=== PATIENT | male | born 1950 | race Caucasian/White ===

== ENCOUNTER 2016-05-12 19:01 | Emergency (ER) | payer MEDICARE ==
[2016-05-12 19:23] VITALS: BMI 21.6
[2016-05-12] MEDS ORDERED: NS 500 ML IV ONE (19:24)
[2016-05-12 19:29] LABS: MPV 8.3 fL (7.4-10.4)
[2016-05-12 19:38] LABS: PARTIAL THROMB. TIME 28.4 SEC (22-35); PT-INR 1.2
[2016-05-12 19:44] LABS: ABG Draw Site Left Radial; ALLEN'S TEST PASS; BEb 7.2 (+/- 2); CARBOXY HGB 2.3; TCO2 32.5 MMOL/L (23-27)
[2016-05-12 19:44] LABS: BLOOD UREA NITROGEN 14 MG/DL (9-20); CALC CORRECTED 9.4 MG/DL (8.4-10.2); CALCIUM 8.7 MG/DL (8.4-10.2); CALCULATED OSMOLALITY 262 MOs/Kg (270-290); CHLORIDE 92 mEq/L (98-107); CPK TOTAL WITH POSSIBLE MB 24 IU/L (55-170); GLUCOSE 120 mg/dL (70-99); SODIUM LEVEL 135 mEq/L (137-146); TOTAL PROTEIN 6.9 G/DL (6.3-8.2)
--- NOTE | 2016-05-12 19:44 | DIRPT ---
CLINICAL DATA: 65-year-old male with sepsis EXAM: PORTABLE CHEST 1 VIEW COMPARISON: Radiograph 04/16/2016 FINDINGS: Single portable view of the chest demonstrates clear lungs. Minimal bibasilar platelike atelectatic changes. No pleural effusion or pneumothorax. Stable cardiac silhouette. Right shoulder arthroplasty and thoracolumbar Rudolph rods. IMPRESSION: No active disease. Electronically Signed By: Tolu Martinez M.D. On: 05/12/2016 19:41
[2016-05-12 19:46] LABS: HEMOGLOBIN 9.7 G/DL (14.0-18.0)
[2016-05-12 20:08] LABS: SEG NEUTROPHIL 68 % (45-76)
[2016-05-12 20:09] LABS: TOTAL CELL COUNT 100
[2016-05-12 21:38] LABS: LEUKOCYTES/URINE NEG (NEGATIVE); NITRITE/URINE NEG (NEGATIVE); RBC/URINE 0-2 (0-2); URINE OCCULT BLOOD NEG (NEG/TRACE)
--- NOTE | 2016-05-12 22:40 | EDPRACDOC ---
- General Information Chief Complaint: Altered Mental Status Stated Complaint: BACK & ABD. PAIN Time Seen by Provider: 05/12/16 19:11 Information Source: Patient Home Medications: Home Medications Alprazolam [Xanax] 0.5 mg PO Q8H PRN 09/19/14 Celecoxib (anti-inflammatory) [Celebrex] 200 mg PO BID 09/19/14 Cyclobenzaprine HCl [Flexeril] 5 mg PO TID PRN 09/19/14 Dexlansoprazole [Dexilant] 60 mg PO DAILY 09/19/14 Finasteride [Proscar] 5 mg PO DAILY 09/19/14 Hydrochlorothiazide 12.5 mg PO DAILY 09/19/14 Pregabalin [Lyrica] 300 mg PO TID 09/19/14 Ranitidine HCl 300 mg PO HS 09/19/14 Rosuvastatin [Crestor] 10 mg PO HS 09/19/14 Aspirin [Aspirin EC] 81 mg PO DAILY 12/06/14 Bupropion HCl [Bupropion HCl Sr] 200 mg PO BID 12/06/14 Clopidogrel Bisulfate [Plavix] 75 mg PO DAILY 12/06/14 Metoprolol Tartrate [Lopressor] 12.5 mg PO BID 12/06/14 Oxycodone Immediate Release [Oxycodone Immediate Release (OxyIR)] 1 - 2 tabs PO Q4H PRN 12/07/14 Probiotic Blend [Mariam Q] 1 tab PO BIDLS #20 tablet 04/19/16 Allergies/Adverse Reactions: Allergies Allergy/AdvReac Type Severity Reaction Status Date / Time Iodinated Contrast Media - Allergy Rash-Genera Verified 04/17/16 13:36 IV Dye lized - History of Present Illness Onset: 4 days Exact Onset of Symptoms: Unknown HPI: GEN WEAKNESS, POOR PO INTAKE, INCREASING BACK PAIN (SPINE SURGERY DR LUGO FEB 2016). APPT WITH HIM IN 2 DAYS. FEVER INTERMITTENTLY FOR PAST 2 WEEKS, LAST SEVERAL DAYS AGO. 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 NO SIGNIF SHOB OR OTHER PAIN - Treatment Prior to ED Arrival Reported Medications/Treatment ANSWERING SERVICE AGENT EMS Treatment ALS IV Yes ED Past Medical History - History Reviewed Yes Nurses notes reviewed and agree except as marked - Patient Medical History Neurological History: Reports: Migraine Cardiac History: Reports: Coronary Artery Disease, Hypertension, Heart Attack (, 10/2009), Cardiac Catheterization (09/200910/09/2009), Hypercholesterolemia Respiratory History: Reports: Asthma, COPD GI/ History: Reports: Gastroesophageal Reflux (hiatal hernia, Sellers's esophagus), Diverticulosis Musculoskeletal History: Reports: Arthritis (and chronic back pain. 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 Denies: Depression, Substance Use Disorder Systemic History: Denies: Cancer Surgical History: Reports: Cholecystectomy (Dr. Jon 12/2014.), Cardiac Catheterization (09/200910/09/2009), Other (Back surgery 02/2016 Dr. Castillo ) Date of Last Radiation Treatment: Never Date of Last Chemotherapy Date: NEVER - Family Medical History Reports: Hypertension (BROTHERS, FATHER), Stroke (BROTHER), Cardiac Disorders ( BROTHERS, FATHER), Renal Disease (Mother: Bright's disease). Denies: Diabetes, Cancer - Social Medical History Smoking Status: Heavy tobacco smoker (5 or more cigarettes/day or daily pipe/ cigar) Social History: Denies: Substance Use Disorder EDM Review of Systems - Review of Systems ROS Negative Except as Marked: Yes All systems reviewed and were negative except as marked - Physical Exam Constitutional: Cachectic, Confused, Somnolent, Other. negative: Well nourished , Well appearing Oriented to: Not Oriented Last recorded Vital Signs: Last Vital Signs Temp 98.4 F 05/12/16 19:16 Pulse 82 05/12/16 21:09 Resp 20 05/12/16 21:09 BP 111/67 05/12/16 21:09 Pulse Ox 97 05/12/16 21:09 Oxygen Pulse Oxygen Saturation 97 O2 Device Nasal Cannula Oxygen Flow Rate 2 Fraction of Inspired Oxygen ( FIO2) - HEENT Head: Normal Eye Exam: Pale Conjunctiva Oropharynx: Membranes Dry Neck: Normal - Respiratory/Cardiovascular Respiratory: Normal - CTA Cardiovascular: Normal. negative: Tachycardia - GI Auscultation: Normal Palpation: Normal Tenderness: Non tender - Musculoskeletal Back: Normal, Other (LONG THORACIC TO LUMBAR SCAR WELL HEALED, NO FLUID COLLECTIONS. NO DRAINAGE.) Extremities: Normal. negative: Clubbing, Cyanosis, Pedal Edema - Integumentary Skin: Normal, Warm, Dry - Neurologic Memory Impaired: Normal Mood Description: Flat Thought: negative: Coherent - Re-evaluation Re-evaluation 3 Re-evaluation Time: :33 (AWAKE, COHERENT NO PAIN. AMBULATED 30 FEET IN HALLWAYS.) General: Pleasant MALE No acute distress. Neuro: Alert Oriented, calm and cooperative HEENT: Normocephalic atraumatic. Sclerae nonicteric. Extraocular movements intact. Oral mucosa pink and moist. Neck: Supple. Nontender. Good range of motion. No masses. Trachea is midline. No cervical adenopathy. Lungs: Clear to auscultation. No rhonchi or wheezing. Heart: Regular rate and rhythm. No murmur. Abdomen: Soft, nontender, nondistended. No hepatosplenomegaly. No abdominal wall defects or masses. No guarding or rebound. Extremities: no cyanosis clubbing or edema. No palpable deformities. Skin: Warm and dry, no rashes - Results 05/12/16 19:08 05/12/16 19:08 WBC 10.9 xk/uL (3.8-10.8) H 05/12/16 19:08 RBC 4.73 xM/uL (4.70-6.10) 05/12/16 19:08 Hgb 11.4 g/dL (14.0-18.0) L 05/12/16 19:08 Hct 35.3 % (42-52) L 05/12/16 19:08 MCV 75 fL (80-94) L 05/12/16 19:08 MCH 24.1 pg (27-32) L 05/12/16 19:08 MCHC 32.4 g/dl (33-36) L 05/12/16 19:08 RDW 19.8 % (11.5-14.5) H 05/12/16 19:08 Plt Count 344 xk/uL (130-400) 05/12/16 19:08 MPV 8.3 fL (7.4-10.4) 05/12/16 19:08 Neut % (Auto) Cancelled 05/12/16 19:08 Lymph % (Auto) Cancelled 05/12/16 19:08 Hendricks % (Auto) Cancelled 05/12/16 19:08 Eos % (Auto) Cancelled 05/12/16 19:08 Baso % (Auto) Cancelled 05/12/16 19:08 Absolute Neuts (auto) Cancelled 05/12/16 19:08 Absolute Lymphs (auto) Cancelled 05/12/16 19:08 Seg Neuts % (Manual) 68 % (45-76) 05/12/16 19:08 Band Neutrophils % 0 % (0-5) 05/12/16 19:08 Lymphocytes % (Manual) 22 % (17-44) 05/12/16 19:08 Monocytes % (Manual) 10 % (0-10) 05/12/16 19:08 Absolute Neutrophils 7.41 xk/uL (1.7-8.2) 05/12/16 19:08 Absolute Lymphocytes 2.40 xk/uL (0.65-4.75) 05/12/16 19:08 Vacuolated Neuts Few 05/12/16 19:08 Platelet Estimate Norm (NORMAL) 05/12/16 19:08 RBC Morphology 1+ aniso 1+ macro 1+ poik 05/12/16 19:08 RBC Morphology 1+ aniso 1+ macro 1+ poik 05/12/16 19:08 RBC Morphology 1+ aniso 1+ macro 1+ poik 05/12/16 19:08 PT 12.0 SEC (9.2-11.2) H 05/12/16 19:08 INR 1.2 05/12/16 19:08 APTT 28.4 SEC (22-35) 05/12/16 19:08 Puncture Site Left radial 05/12/16 19:40 pCO2 41.0 mmHg (35-45) 05/12/16 19:40 pO2 54.0 mmHg (80-100) L 05/12/16 19:40 HCO3 31.2 MMOL/L (22-26) H 05/12/16 19:40 Total CO2 32.5 MMOL/L (23-27) H 05/12/16 19:40 Base Excess 7.2 (+/- 2) H 05/12/16 19:40 Collected by Jose Antonioytr 05/12/16 19:40 ABG pH 7.490 pH UNITS (7.35-7.45) H 05/12/16 19:40 ABG Hemoglobin 9.7 G/DL (14.0-18.0) L 05/12/16 19:40 ABG Oxyhemoglobin 88.0 % (95-98) L* 05/12/16 19:40 ABG Carboxyhemoglobin 2.3 05/12/16 19:40 ABG Methemoglobin 1.3 % (<3.0) 05/12/16 19:40 Total O2 Concentration 12.0 VOL % (17.6-24.3) L 05/12/16 19:40 FiO2 % 21 05/12/16 19:40 Sodium 135 mEq/L (137-146) L 05/12/16 19:08 Potassium 2.8 mEq/L (3.5-5.1) L 05/12/16 19:08 Chloride 92 mEq/L (98-107) L 05/12/16 19:08 Carbon Dioxide 31 mMOL/L (22-33) 05/12/16 19:08 Anion Gap 15 mEq/L (8-16) 05/12/16 19:08 BUN 14 MG/DL (9-20) 05/12/16 19:08 Creatinine 0.70 MG/DL (0.66-1.25) 05/12/16 19:08 Estimated GFR (MDRD) > 60 mL/min (>=60) 05/12/16 19:08 Glucose 120 mg/dL (70-99) H 05/12/16 19:08 Calculated Osmolality 262 MOs/Kg (270-290) L 05/12/16 19:08 Lactic Acid 1.6 mEq/L (0.7-2.1) 05/12/16 19:08 Calcium 8.7 MG/DL (8.4-10.2) 05/12/16 19:08 Corrected Calcium 9.4 MG/DL (8.4-10.2) 05/12/16 19:08 Total Bilirubin 0.7 MG/DL (0.2-1.3) 05/12/16 19:08 AST 25 IU/L (17-59) 05/12/16 19:08 ALT 19 IU/L (21-72) L 05/12/16 19:08 Alkaline Phosphatase 121 IU/L (50-160) 05/12/16 19:08 Creatine Kinase 24 IU/L (55-170) L 05/12/16 19:08 Troponin I < 0.01 ng/mL (<.04) 05/12/16 19:08 Total Protein 6.9 G/DL (6.3-8.2) 05/12/16 19:08 Albumin 3.3 G/DL (3.5-5.0) L 05/12/16 19:08 Lipase 72 U/L (23-300) 05/12/16 19:08 Urine Color Dark yellow 05/12/16 21:11 Urine Clarity Clear 05/12/16 21:11 Urine pH 6.0 (5.0-8.0) 05/12/16 21:11 Ur Specific [place] 1.025 (1.003-1.035) 05/12/16 21:11 Urine Protein 2+ (NEG/TRACE) H 05/12/16 21:11 Urine Glucose (UA) Neg (NEGATIVE) 05/12/16 21:11 Urine Ketones 1+ (NEGATIVE) H 05/12/16 21:11 Urine Occult Blood Neg (NEG/TRACE) 05/12/16 21:11 Urine Nitrite Neg (NEGATIVE) 05/12/16 21:11 Urine Bilirubin Neg (NEGATIVE) 05/12/16 21:11 Urine Urobilinogen <2.0 MG/DL (0-1) 05/12/16 21:11 Ur Leukocyte Esterase Neg (NEGATIVE) 05/12/16 21:11 Urine RBC 0-2 (0-2) 05/12/16 21:11 Urine WBC 10-20 (0-2) H 05/12/16 21:11 Ur Epithelial Cells 1+ 05/12/16 21:11 Urine Bacteria Few (NEG/FEW) 05/12/16 21:11 Urine Mucus Sm amt (NEG/OCC) 05/12/16 21:11 Blood Type O POSITIVE 05/12/16 19:08 Antibody Screen Negative 05/12/16 19:08 Lab Results 05/12/16 05/12/16 05/12/16 21:11 19:40 19:08 WBC RBC Hgb Hct MCV MCH MCHC RDW Plt Count MPV Neut % (Auto) Lymph % (Auto) Hendricks % (Auto) Eos % (Auto) Baso % (Auto) Absolute Neuts (auto) Absolute Lymphs (auto) Seg Neuts % (Manual) Band Neutrophils % Lymphocytes % (Manual) Monocytes % (Manual) Absolute Neutrophils Absolute Lymphocytes Vacuolated Neuts Platelet Estimate RBC Morphology PT 12.0 H INR 1.2 APTT 28.4 Puncture Site Left radial pCO2 41.0 pO2 54.0 L HCO3 31.2 H Total CO2 32.5 H Base Excess 7.2 H Collected by Kaytr ABG pH 7.490 H ABG Hemoglobin 9.7 L ABG Oxyhemoglobin 88.0 L* ABG Carboxyhemoglobin 2.3 ABG Methemoglobin 1.3 Total O2 Concentration 12.0 L FiO2 % 21 Sodium Potassium Chloride Carbon Dioxide Anion Gap BUN Creatinine Estimated GFR (MDRD) Glucose Calculated Osmolality Lactic Acid Calcium Corrected Calcium Total Bilirubin AST ALT Alkaline Phosphatase Creatine Kinase Troponin I Total Protein Albumin Lipase Urine Color Dark yellow Urine Clarity Clear Urine pH 6.0 Ur Specific [place] 1.025 Urine Protein 2+ H Urine Glucose (UA) Neg Urine Ketones 1+ H Urine Occult Blood Neg Urine Nitrite Neg Urine Bilirubin Neg Urine Urobilinogen <2.0 Ur Leukocyte Esterase Neg Urine RBC 0-2 Urine WBC 10-20 H Ur Epithelial Cells 1+ Urine Bacteria Few Urine Mucus Sm amt Blood Type Antibody Screen 05/12/16 05/12/16 05/12/16 19:08 19:08 19:08 WBC 10.9 H RBC 4.73 Hgb 11.4 L Hct 35.3 L MCV 75 L MCH 24.1 L MCHC 32.4 L RDW 19.8 H Plt Count 344 MPV 8.3 Neut % (Auto) Cancelled Lymph % (Auto) Cancelled Hendricks % (Auto) Cancelled Eos % (Auto) Cancelled Baso % (Auto) Cancelled Absolute Neuts (auto) Cancelled Absolute Lymphs (auto) Cancelled Seg Neuts % (Manual) 68 Band Neutrophils % 0 Lymphocytes % (Manual) 22 Monocytes % (Manual) 10 Absolute Neutrophils 7.41 Absolute Lymphocytes 2.40 Vacuolated Neuts Few Platelet Estimate Norm RBC Morphology 1+ poik PT INR APTT Puncture Site pCO2 pO2 HCO3 Total CO2 Base Excess Collected by ABG pH ABG Hemoglobin ABG Oxyhemoglobin ABG Carboxyhemoglobin ABG Methemoglobin Total O2 Concentration FiO2 % Sodium 135 L Potassium 2.8 L Chloride 92 L Carbon Dioxide 31 Anion Gap 15 BUN 14 Creatinine 0.70 Estimated GFR (MDRD) > 60 Glucose 120 H Calculated Osmolality 262 L Lactic Acid 1.6 Calcium 8.7 Corrected Calcium 9.4 Total Bilirubin 0.7 AST 25 ALT 19 L Alkaline Phosphatase 121 Creatine Kinase 24 L Troponin I < 0.01 Total Protein 6.9 Albumin 3.3 L Lipase 72 Urine Color Urine Clarity Urine pH Ur Specific [place] Urine Protein Urine Glucose (UA) Urine Ketones Urine Occult Blood Urine Nitrite Urine Bilirubin Urine Urobilinogen Ur Leukocyte Esterase Urine RBC Urine WBC Ur Epithelial Cells Urine Bacteria Urine Mucus Blood Type Antibody Screen 05/12/16 19:08 WBC RBC Hgb Hct MCV MCH MCHC RDW Plt Count MPV Neut % (Auto) Lymph % (Auto) Hendricks % (Auto) Eos % (Auto) Baso % (Auto) Absolute Neuts (auto) Absolute Lymphs (auto) Seg Neuts % (Manual) Band Neutrophils % Lymphocytes % (Manual) Monocytes % (Manual) Absolute Neutrophils Absolute Lymphocytes Vacuolated Neuts Platelet Estimate RBC Morphology PT INR APTT Puncture Site pCO2 pO2 HCO3 Total CO2 Base Excess Collected by ABG pH ABG Hemoglobin ABG Oxyhemoglobin ABG Carboxyhemoglobin ABG Methemoglobin Total O2 Concentration FiO2 % Sodium Potassium Chloride Carbon Dioxide Anion Gap BUN Creatinine Estimated GFR (MDRD) Glucose Calculated Osmolality Lactic Acid Calcium Corrected Calcium Total Bilirubin AST ALT Alkaline Phosphatase Creatine Kinase Troponin I Total Protein Albumin Lipase Urine Color Urine Clarity Urine pH Ur Specific [place] Urine Protein Urine Glucose (UA) Urine Ketones Urine Occult Blood Urine Nitrite Urine Bilirubin Urine Urobilinogen Ur Leukocyte Esterase Urine RBC Urine WBC Ur Epithelial Cells Urine Bacteria Urine Mucus Blood Type O POSITIVE Antibody Screen Negative - EKG EKG #1 EKG Time: 19:09 Rate: bpm: 83 [place]: Normal Rhythm: NSR Block: None, RBBB Hypertrophy: None ST: Normal - Diagnostic Imaging Chest Image interpreted by: Radiologist Patient Name: DELORIS DELONG LOC: ED : 1950 AGE: 65 Order Date:05/12/16 Date of Service:09/20 Report # [id number] Ord Physician: Noemi Nicole MD Exam # [id number] Emergency Physician: Noemi Nicole MD Exam(s): [id number] RAD/DG CHEST PORTABLE CLINICAL DATA: 65-year-old male with sepsis EXAM: PORTABLE CHEST 1 VIEW COMPARISON: Radiograph 04/16/2016 FINDINGS: Single portable view of the chest demonstrates clear lungs. Minimal bibasilar platelike atelectatic changes. No pleural effusion or pneumothorax. Stable cardiac silhouette. Right shoulder arthroplasty and thoracolumbar Rudolph rods. IMPRESSION: No active disease. Electronically Signed By: Tolu Martinez M.D. On: 05/12/2016 19:41 Electronically Signed By: Tolu Martinez MD Electronically Signed Date/Time: 944 Dictate Date/Time: 05/12/161939 Technologist: Beverly Washburn Transcribed By: Karlee Transcribed Date/Time: 05/12/161940 - Departure Disposition: Home Final Diagnosis: Dehydration, Altered mental status, Medication adverse effect Instructions: Dehydration (ED), Narcotic Pain Management (ED) Education/Counseling Given To: Patient, Family Member Education/Counseling Given Regarding: Diagnosis, Treatment, Prognosis Referrals: Galo Snider II, MD [Primary Care Provider] - One Week Prescriptions: No Action Hydrochlorothiazide 12.5 mg PO DAILY Pregabalin [Lyrica] 300 mg PO TID Finasteride [Proscar] 5 mg PO DAILY Dexlansoprazole [Dexilant] 60 mg PO DAILY Cyclobenzaprine HCl [Flexeril] 5 mg PO TID PRN PRN Reason: Muscle Spasms Celecoxib (anti-inflammatory) [Celebrex] 200 mg PO BID Alprazolam [Xanax] 0.5 mg PO Q8H PRN PRN Reason: Anxiety Rosuvastatin [Crestor] 10 mg PO HS Ranitidine HCl 300 mg PO HS Aspirin [Aspirin EC] 81 mg PO DAILY Clopidogrel Bisulfate [Plavix] 75 mg PO DAILY Metoprolol Tartrate [Lopressor] 12.5 mg PO BID Bupropion HCl [Bupropion HCl Sr] 200 mg PO BID Oxycodone Immediate Release [Oxycodone Immediate Release (OxyIR)] 1 - 2 tabs PO Q4H PRN PRN Reason: Pain Probiotic Blend [Mariam Q] 1 tab PO BIDLS #20 tablet Additional Instructions: DO NOT TAKE OXYCODONE AND MUSCLE RELAXER TOGETHER. DRINK LOTS OF FLUIDS.
[2016-05-12 23:29] VITALS: TEMP 98.2
[2016-05-13 00:56] VITALS: BP 101/53; PULSE 80
== END 2016-05-13 00:53 | disposition home or self-care (01) ==
LOC: ED 19:01
DX: E86.0 Dehydration (principal); R41.82 Altered mental status, unspecified; T40.2X5A Adverse effect of other opioids, initial encounter; T48.1X5A Adverse effect of skeletal muscle relaxants [neuromuscular blocking agents], initial encounter; I25.10 Atherosclerotic heart disease of native coronary artery without angina pectoris; I10 Essential (primary) hypertension; E78.00 Pure hypercholesterolemia, unspecified; J44.9 Chronic obstructive pulmonary disease, unspecified; J45.909 Unspecified asthma, uncomplicated; K21.9 Gastro-esophageal reflux disease without esophagitis; F41.9 Anxiety disorder, unspecified; F17.200 Nicotine dependence, unspecified, uncomplicated; Z79.899 Other long term (current) drug therapy
CPT/HCPCS: 36415; 36600; 71010; 80053; 81001; 82550; 82805; 83605; 83690; 84484; 85007; 85027; 85610; 85730; 86850; 86900; 86901; 87040; 87077; 87086; 87186; 93005; 96360; 99284